=== PATIENT | male | born 1955 | race African-American/Black ===

== ENCOUNTER 2020-03-22 09:01 | Emergency (ER) | payer OTHER ==
--- NOTE | 2020-03-22 10:21 | ER Document Report ---
HPI - HPI Time Seen by Provider: 03/22/20 10:09 Pain Level: 3 Context: Patient is a 64-year-old male with a past medical history of hyperlipidemia and diabetes who presents the emergency department after a fall. Patient's was in the back of his truck and he lost balance and fell to the ground onto the left side of his ribs. This happened around 830 this morning. Patient denies any dizziness, hitting his head, loss of consciousness, shortness of breath, difficulty breathing, or any other symptoms. States that when he breathes he can feel the tenderness in his chest wall. - CONSTITUTIONAL Constitutional: DENIES: Fever, Chills - CARDIOVASCULAR Cardiovascular: DENIES: Chest pain Notes: Reports chest wall/rib pain - RESPIRATORY Respiratory: DENIES: Trouble Breathing, Coughing - GASTROINTESTINAL Gastrointestinal: DENIES: Abdominal Pain, Nausea, Patient vomiting - DERM Skin Color: Normal Skin Problems: None Past Medical History - General Information source: Patient - Social History Smoking Status: Never Smoker Family History: Reviewed & Not Pertinent - Past Medical History Cardiac Medical History: Reports: Hx Hypercholesterolemia Endocrine Medical History: Reports: Hx Diabetes Mellitus Type 2 Vertical Provider Document - CONSTITUTIONAL Agree With Documented VS: Yes Exam Limitations: No Limitations General Appearance: No Apparent Distress - HEENT HEENT: Atraumatic, Normocephalic, PERRLA - NECK Neck: Normal Inspection - RESPIRATORY Respiratory: Breath Sounds Normal, No Respiratory Distress. negative: Chest Non-Tender - Left anterior/lateral tenderness - CARDIOVASCULAR Cardiovascular: Regular Rate, Regular Rhythm Pulses: Normal: Radial - GI/ABDOMEN Gastrointestinal: Abdomen Soft, Abdomen Non-Tender - BACK Back: Normal Inspection. negative: CVA Tenderness-Right, CVA Tenderness-Left - MUSCULOSKELETAL/EXTREMETIES Musculoskeletal/Extremeties: FROM - NEURO Level of Consciousness: Awake, Alert, Appropriate Motor/Sensory: No Motor Deficit, No Sensory Deficit - DERM Integumentary: Warm, Dry, No Rash Course - Re-evaluation Re-evalutation: 03/22/20 11:25 Rib x-ray and chest x-ray is negative for any acute fractures or pneumothorax. We will send the patient home with an incentive spirometer to help with preventing pneumonia. Patient is in agreement with this plan. Instructed the patient on ibuprofen and Tylenol for pain relief. Follow-up precautions were given. Verbal discharge instructions were given to the patient. They verbalized understanding. They are stable for discharge. - Vital Signs Vital signs: Temp Pulse Resp BP Pulse Ox 98.4 F 76 20 159/87 H 100 03/22/20 09:09 03/22/20 09:09 03/22/20 09:09 03/22/20 09:09 03/22/20 09:09 Discharge - Discharge Clinical Impression: Contusion of rib on left side Qualifiers: Encounter type: initial encounter Qualified Code(s): S20.212A - Contusion of left front wall of thorax, initial encounter Condition: Stable Disposition: HOME, SELF-CARE Additional Instructions: You were seen today in the emergency department after a fall. Your x-rays did not show any fractures at this time. Use the incentive spirometer to keep your lungs open and to prevent pneumonia. Follow-up with your primary care provider in the next 3 to 5 days. You can take [id number] Aleve and Tylenol for your pain. If you take Aleve, do not take ibuprofen. Forms: Return to Work
--- NOTE | 2020-03-22 11:22 | RADIOLOGY REPORT (SQ) ---
EXAM DESCRIPTION: RIBS LEFT W/PA CHEST IMAGES COMPLETED DATE/TIME: 03/22/2020 10:58 am REASON FOR STUDY: fall; rib pain COMPARISON: None. TECHNIQUE: Frontal view of the chest and additional views of the left ribs acquired. NUMBER OF VIEWS: Three view. LIMITATIONS: None. FINDINGS: FRONTAL CXR: No pneumothorax. No pleural effusion. No atelectasis or infiltrates. RIBS: No displaced rib fractures. No lytic or blastic bony lesions. OTHER: No other significant finding. IMPRESSION: NO PNEUMOTHORAX. NO DISPLACED RIB FRACTURES. COMMENT: SITE OF TRAUMA/COMPLAINT MARKED/STAMP COMPLETED: NO. TECHNICAL DOCUMENTATION: JOB ID: [id number] [employer]- All Rights Reserved Reading location - IP/workstation name: [email or web address]
[2020-03-22 11:46] VITALS: BP 156/93
== END 2020-03-22 11:48 | disposition home or self-care (01) ==
LOC: ER 09:01
DX: S20.212A Contusion of left front wall of thorax, initial encounter (principal); R07.81 Pleurodynia; W17.89XA Other fall from one level to another, initial encounter; E78.5 Hyperlipidemia, unspecified; E11.9 Type 2 diabetes mellitus without complications
CPT/HCPCS: 99283